=== PATIENT | female | born 1990 | race Hispanic/Latino ===

== ENCOUNTER 2016-06-08 23:17 | Emergency (ER) | payer BC ==
[2016-06-08] MEDS ORDERED: Charcoal 50 gm/240 ml Susp PO STA (23:58)
[2016-06-08] MEDS ORDERED: Sodium Chloride 0.9% 1,000 ML IV ONE (23:58)
--- NOTE | 2016-06-09 | C.PDOC ---
History Of Present Illness <Harvey Paris - Last Filed: 06/09/16 00:07> <Gisele Hogan - Last Filed: 06/09/16 06:10> A 26 year old female was brought in by EMS for a possible drug overdose that occurred prior to arrival. Patient reports taking and unknown number of Methocarbamol pills and cannot report at what time. Patient is crying repeating "I am sorry" numerous times and reports feeling "high". Patient denies alcohol or other drug use. Denies any psychiatric history. Patient denies chest pain, SOB, nausea, vomiting, trauma, or any other complaints. (Gisele Hogan) <Harvey Paris - Last Filed: 06/09/16 00:07> History Per: Patient, EMS History/Exam Limitations: no limitations, other (Poor historian) Onset/Duration Of Symptoms: Hrs Current Symptoms Are (Timing): Still Present Suicide/Self Injury Attempted (Context): Ingestion (Methocarbamol pills, unknown number) Severity: Mild Associated Symptoms: Anxiety, Depression Additional History Per: Patient <Gisele Hogan - Last Filed: 06/09/16 06:10> Time Seen by Provider: 06/08/16 23:40 Chief Complaint (Nursing): Psychiatric Evaluation Past Medical History Reviewed: Historical Data, Nursing Documentation, Vital Signs - Medical History PMH: No Chronic Diseases Surgical History: No Surg Hx Family History: States: Unknown Family Hx - Social History Hx Alcohol Use: Yes Hx Substance Use: No <Gisele Hogan - Last Filed: 06/09/16 06:10> Vital Signs: Last Vital Signs Temp 98.0 F 06/09/16 00:16 Pulse 98 H 06/09/16 04:25 Resp 16 06/09/16 04:25 BP 117/69 06/09/16 04:25 Pulse Ox 100 06/09/16 05:58 Review Of Systems Except As Marked, All Systems Reviewed And Found Negative. Constitutional: Negative for: Fever, Chills, Weakness, Malaise Eyes: Negative for: Vision Change Cardiovascular: Negative for: Chest Pain, Palpitations Respiratory: Negative for: Shortness of Breath Gastrointestinal: Negative for: Nausea, Vomiting, Abdominal Pain Skin: Negative for: Rash Neurological: Negative for: Headache, Dizziness Psych: Positive for: Anxiety, Suicidal ideation <EdisonGisele Harper Last Filed: 06/09/16 06:10> Physical Exam - Physical Exam Appears: Non-toxic, Other (Anxious, tearful, emotional ) Skin: Warm, Dry Head: Atraumatic, Normacephalic Eye(s): bilateral: Normal Inspection, EOMI Nose: Normal, No Flaring Oral Mucosa: Moist Throat: Normal, No Erythema, No Exudate, No Drooling Neck: Normal ROM Chest: Symmetrical Cardiovascular: Rhythm Regular, No Murmur Respiratory: Normal Breath Sounds, No Rales, No Rhonchi, No Wheezing Gastrointestinal/Abdominal: Bowel Sounds (active), Soft, No Tenderness, No Mass , No Distention, No Guarding Back: Normal Inspection Extremity: Bilateral: Atraumatic, Normal Color And Temperature, Normal ROM Neurological/Psych: Oriented x3, Normal Speech, No Other (No focal deficit) Gait: Steady <EdisonGisele Harper Last Filed: 06/09/16 06:10> ED Course And Treatment ECG: Interpreted By Me, Viewed By Me ECG Rhythm: Sinus Rhythm (78), Nonspecific Changes Pulse Ox Interpretation: Normal <Harvey Paris - Last Filed: 06/09/16 00:07> - Laboratory Results Result Diagrams: 06/09/16 00:21 06/09/16 00:21 Lab Interpretation: No Acute Changes ECG: Interpreted By Me, Viewed By Me ECG Rhythm: Sinus Rhythm, Nonspecific Changes O2 Sat by Pulse Oximetry: 100 (Room air) Pulse Ox Interpretation: Normal <Gisele Hogan Marilynn Harper Last Filed: 06/09/16 06:10> Medical Decision Making <Harvey Paris - Last Filed: 06/09/16 00:07> <Gisele Hogan Meredith Last Filed: 06/09/16 06:10> Medical Decision Making: Impression: 26 y.o female brought in by EMS after possible overdose Plan: * 1:1 observation * labs * crisis evaluation Progress: Spoke with Poison control who recommends cardiac monitoring for tachycardia, hypotension and recommends IV fluids and charcoal Orders were placed and neighborhood worker contacted for evaluation 00:00 family arrives at bedside, report patient has no history of prior similar episodes 0330 BP decreased to 98/55, order another IV NS bolus; Still awaiting crisis evaluation. 0445 Vital signs improved. Patient hemodynamically stable. 0550 Logging Worker completes evaluation and spoke with psychiatrist Dr Gonsales was contacted and states patient stable for discharge. Family denies any suicide threat or concern for suicide, patient has no history of psych complaints. Family wants patient to go home with them and she is agreeable. Patient to be discharged. (Gisele Hogan) Disposition <Harvey Paris - Last Filed: 06/09/16 00:07> - Disposition Disposition Time: 05:57 - POA Present On Arrival: None <Gisele Hogan - Last Filed: 06/09/16 06:10> - Disposition Referrals: [facility] [Outside] [facility] [Outside] Disposition: HOME/ ROUTINE Condition: STABLE Additional Instructions: Please follow up with your primary doctor for further evaluation You may follow up with [facility] at [address] [place] [address]. Please call [phone] or ext [phone] to arrange appointment. If you need to speak to someone immediately call Crisis Hotline [phone] Instructions: Anxiety (ED) - Clinical Impression Clinical Impression: Adjustment disorder, Anxiety <Harvey Paris - Last Filed: 06/09/16 00:07> - Scribe Statement The provider has reviewed the documentation as recorded by the Scribe <Gisele Hogan - Last Filed: 06/09/16 06:10> - Scribe Statement Felipa samayoa All medical record entries made by the Scribe were at my direction and personally dictated by me. I have reviewed the chart and agree that the record accurately reflects my personal performance of the history, physical exam, medical decision making, and the department course for this patient. I have also personally directed, reviewed, and agree with the discharge instructions and disposition. (Gisele Hogan)
[2016-06-09 00:06] VITALS: RESP 16
[2016-06-09 00:19] VITALS: TEMP 98
[2016-06-09 00:25] LABS: BASO % 0.5 % (0.0-2.0); EOS # 0.1 K/uL (0.0-0.7); EOS % 0.8 % (0.0-4.0); HEMATOCRIT 39.6 % (34.0-47.0); LYMPH # 3.3 K/uL (1.0-4.3); LYMPH % 37.3 % (20.0-40.0); MEAN CELL VOLUME 87.2 fL (81.0-99.0); MEAN CORPUSCULAR HEMOGLOBIN 29.6 pg (27.0-31.0); MEAN CORPUSCULAR HGB CONC 33.9 g/dL (33.0-37.0); MEAN PLATELET VOLUME 9.8 fL (7.2-11.7); MONO # 0.6 K/uL (0.0-0.8); MONO % 6.6 % (0.0-10.0); RED CELL DISTRIBUTION WIDTH 12.6 % (11.5-14.5); WHITE BLOOD COUNT 8.9 K/uL (4.8-10.8)
[2016-06-09] MEDS ORDERED: Charcoal 50 gm/240 ml Susp ONE (00:26)
[2016-06-09 00:38] LABS: RBC URINE 37 /hpf (0-3); URINE BACTERIA OCC (<OCC); URINE BILIRUBIN NEGATIVE (NEGATIVE); URINE BLOOD 2+ (NEGATIVE); URINE COLOR Yellow (YELLOW); URINE GLUCOSE (UA) NORMAL (Normal); URINE KETONE NEGATIVE (NEGATIVE); URINE LEUKOCYTE ESTERASE 1+ Leu/uL (Negative); URINE PROTEIN NEGATIVE (NEGATIVE); URINE UROBILINOGEN NORMAL mg/dL (0.2-1.0); WBC URINE 12 /hpf (0-5)
[2016-06-09 00:44] LABS: CHLORIDE 105 mmol/L (98-107); POTASSIUM 3.4 mmol/L (3.6-5.2); SODIUM 141 mmol/L (132-148)
[2016-06-09 00:46] LABS: GFR AFRICAN-AMERICAN > 60
[2016-06-09 00:47] LABS: ALB/GLOB RATIO 1.1 (1.0-2.1); ALKALINE PHOSPHATASE 58 U/L (38-126); ALT/SGPT 11 U/L (9-52); AST/SGOT 27 U/L (14-36); BILIRUBIN,TOTAL 0.6 mg/dL (0.2-1.3); BLOOD UREA NITROGEN 11 mg/dL (7-17); CALCIUM 9.2 mg/dl (8.6-10.4); CARBON DIOXIDE 19 mmol/L (22-30); GLUCOSE,RANDOM 93 mg/dL (65-105); TOTAL PROTEIN 7.9 g/dL (6.3-8.3)
[2016-06-09 00:48] LABS: ALCOHOL SERUM < 10 mg/dl (0-10)
[2016-06-09] MEDS ORDERED: Sodium Chloride 0.9% 1,000 ML IV ONE (03:36)
[2016-06-09] MEDS ORDERED: Sodium Chloride 0.9% 1,000 ML ONE (03:38)
[2016-06-09 06:12] VITALS: BP 118/72; PULSE 82; O2SAT 99
--- NOTE | 2016-06-10 13:59 | CARD ---
APPROVED REPORT EKG Measurement Heart [id number] <Conclusion> Normal sinus rhythm with sinus arrhythmia Normal ECG
== END 2016-06-09 06:12 | disposition home or self-care (01) ==
LOC: C.ER 23:17
DX: F43.20 Adjustment disorder, unspecified (principal); F41.9 Anxiety disorder, unspecified
CPT/HCPCS: 80053; 81001; 84703; 85025; 93005; 99285; G0480; J7040